=== PATIENT | female | born 1965 | race Caucasian/White ===

== ENCOUNTER 2017-07-06 09:50 | Emergency (ER) | payer MEDICARE, OTHER ==
--- NOTE | 2017-07-06 09:53 | ED Physician Documentation ---
General Adult - HISTORIAN Historian: patient - HPI Stated Complaint: left eye pain Chief Complaint: Eye Trauma Onset: days ago (10) Timing: better Severity: mild Further Comments: yes (She states she has had some issues starting last with eye twitching and now her eye has some pain - although the pain is better today than it was a few days ago. She denies any issues with vision. No headache No other injury) Last known Well Code/Unknown Code: Unknown - ROS CONST: denies: fever EYES/ENT: denies: problems with vision, nasal drainage, nasal congestion CVS/RESP: denies: shortness of breath, cough GI/: none MS/SKIN/LYMPH: none NEURO/PSYCH: denies: headache, dizziness - PAST HX Past History: other (Paranoid David, HTN, Muscle weakness ) Other History: none Surgeries/Procedures: none Immunizations: referred to PCP Allergies/Adverse Reactions: Allergies Allergy/AdvReac Type Severity Reaction Status Date / Time No Known Drug Allergies Allergy Unverified 07/24/14 15:35 - SOCIAL HX Smoking History: non-smoker Alcohol Use: none Drug Use: none - FAMILY HX Family History: No - REVIEWED ASSESSMENTS Nursing Assessment Reviewed: Yes Vitals Reviewed: Yes General Adult Physical Exam - PHYSICAL EXAM GENERAL APPEARANCE: no distress EENT: ZOYA NECK: normal inspection RESPIRATORY: no resp distress, chest non-tender, breath sounds normal CVS: reg rate & rhythm, heart sounds normal, no murmur ABDOMEN: soft SKIN: warm/dry, normal color EXTREMITIES: non-tender, normal range of motion NEURO: oriented X3, CN's nml as tested, motor nml, sensation nml Discharge Clincal Impression: Eye abnormalities Referrals: Luzma Gastelum MD [Primary Care Provider] - 2 Days Additional Instructions: Follow up with eye dr GRACIA Return to ER for any changes in pain or vision DG Condition: Stable Disposition: 01 HOME, SELF-CARE Decision to Admit: NO Date of Decison to Admit: 07/06/17 Decision Time: 10:13
[2017-07-06 10:14] VITALS: BP 129/79
== END 2017-07-06 10:23 | disposition home or self-care (01) ==
LOC: ED 09:50
DX: H57.12 Ocular pain, left eye (principal)
CPT/HCPCS: 99283

== ENCOUNTER 2017-12-11 14:10 | Outpatient (CLI) | payer MEDICARE, OTHER | END 2017-12-11 14:12 | LOC: POD 14:10 | PROVIDERS: ATTEND Podiatrist | DX: B35.1 Tinea unguium (principal); M79.674 Pain in right toe(s); M79.675 Pain in left toe(s); L84 Corns and callosities | CPT/HCPCS: 11721; G0463 ==

== ENCOUNTER 2018-06-17 13:57 | Outpatient (CLI) | payer MEDICARE, OTHER ==
--- NOTE | 2018-06-26 14:40 | OP Clinic Progress Note ---
SUBJECTIVE: Mili Morales is a 52-year-old female who presented to the clinic today for a painful left foot. The patient states that about a year ago she had some callouses trimmed by Dr. Mistry and that they are painful again at this time. She does not admit to any fevers, chills, nausea, vomiting, shortness of breath, or chest pain at this time. She is concerned that perhaps her shoes are causing the calluses to form very slowly. OBJECTIVE: VITAL SIGNS: BP: 139/88, P: 82, R: 16, T: 98.0 degrees Fahrenheit, oxygen saturation is 96% on room air. VASCULAR: There are 2+ DP and PT pulses of the left foot. Capillary refill time is less than 3 seconds to the toes of the left foot. There is no edema in the left foot. DERMATOLOGIC: There is mild hyperkeratosis noted on the distal tips of the left 2nd and 3rd toes. This is also noted at the left sub 5th and plantar lateral 5th metatarsal head area. These calluses under the 5th metatarsal head are noted to be intractable porokeratosis. All calluses were debrided today to intact skin. There was a mild deeper poke from the knife for which we applied antibiotic ointment and a Band-Aid today and the patient will continue to do so for 2 or 3 days or until healed as instructed on her paperwork and verbally. There is no erythema or other open lesions or concerning areas on her left foot. MUSCULOSKELETAL: Pain on palpation is noted about the callus sites of the left foot. There are digital contractures noted of the left foot. The patient also has a higher arch noted on the left foot and it is obvious that she spends her time walking on the forefoot and on the lateral part of her foot. NEUROLOGIC: Light touch sensation is intact to the toes of the left foot. ASSESSMENT: 1. 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 2. Hyperkeratosis at distal tips of toes 2 and 3 of the left foot. PROCEDURE: Paring of calluses x5 of the left foot with a #15 blade. DESCRIPTION OF THE PROCEDURE: A small deeper penetration was noted with trying to get out a deeper intractable porokeratosis at the sub 5th metatarsal head region of the left foot and for this, as there was no bleeding, we still applied triple antibiotic ointment and a Band-Aid. The patient was instructed verbally and with instructions on her sheet that was brought in to do antibiotic ointment and a Band-Aid for 2 to 3 days or until healed. The patient tolerated the procedures very well today. She denies any other complaints or concerns on the left foot. She denies an problems whatsoever on her right foot. PLAN: The patient will return to clinic as needed for further callus care. She was instructed to see me in the [facility] next time, and she was told that she may see me sooner than later if she would like to consider inserts with a cut-out for her 5th metatarsal head. Otherwise, we will see her as needed when the calluses return. cc: Dr. Armando PARRA
== END 2018-06-17 14:00 ==
LOC: POD 13:57
PROVIDERS: ATTEND Podiatrist Foot & Ankle Surgery
DX: L84 Corns and callosities (principal)
CPT/HCPCS: 11055; 99202; G0463